=== PATIENT | male | born 2000 | race Caucasian/White ===

== ENCOUNTER → 2019-06-11 | Outpatient (CLI) | payer BC ==
--- NOTE | 2019-06-11 18:30 | RAD ---
PROCEDURE: LUMBAR SPINE 2-3V STUDY DATE: 06/11/2019 CLINICAL INDICATION / HISTORY: Back pain. TECHNIQUE: AP, lateral and coned-down lateral views of the lumbar spine were obtained COMPARISON: None FINDINGS: Five lumbar segments are identified. Lumbar vertebral bodies are normal in height and alignment. Disc height is maintained. Pedicles are intact. Congenital nonfusion of the posterior elements at the S1 segment is of no clinical significance. Hypoplastic ribs at L1 incidentally noted. IMPRESSION: Normal lumbar spine series. Electronically signed by: Jada Lyman MD (06/11/2019 6:27 PM) [facility]
== END | disposition home or self-care (01) ==
LOC: PMG 15:28
PROVIDERS: ATTEND Family Medicine
DX: M54.5 Low back pain (principal); Q76.6 Other congenital malformations of ribs
CPT/HCPCS: 72100